=== PATIENT | female | born 1955 | race Two or more races ===

== ENCOUNTER 2021-03-03 14:02 | Emergency (ER) | payer SELFPAY ==
[~2021-03-03] VITALS: Ht 167.6 cm; Wt 99.8 kg
[2021-03-03 14:45] LABS: Urine Bacteria FEW /hpf (None Seen); Urine Blood Negative /uL (Negative); Urine Mucus FEW (None Seen); Urine Specific Gravity 1.023 (1.001-1.035); Urine WBC 18 /hpf (0 - 5)
[2021-03-03 14:45] LABS: Basophils # (auto) 0 10 ^3/uL (0-0.2); Basophils % (auto) 0.5 % (0.0-2.0); Eosinophils # (auto) 0.1 10 ^3/uL (0-0.8); Eosinophils % (auto) 1.1 % (0.0-7.0); Hematocrit 37.2 % (36.0-46.0); Hemoglobin 12.6 g/dL (12.2-16.2); Lymphocytes # (auto) 1.9 10 ^3/uL (0.4-5.4); Lymphocytes % (auto) 24.8 % (10.0-50.0); Mean Corpuscular Hemoglobin 29.7 pg (28.0-32.0); Mean Corpuscular Hgb Conc. 33.8 g/dL (32.0-36.0); Mean Corpuscular Volume 87.8 fL (80.0-100.0); Monocytes # (auto) 0.4 10 ^3/uL (0-1.3); Monocytes % (auto) 5.3 % (0.0-12.0); Neutrophils # (auto) 5.3 10 ^3/uL (1.6-8.6); Neutrophils % (auto) 68.3 % (37.0-80.0); Red Blood Cells 4.24 10^6/uL (4.0-5.20); Red Cell Distribution Width 13.7 % (11.8-14.3); White Blood Cell 7.7 10^3/uL (4.4-10.8)
[2021-03-03 15:05] LABS: Albumin 3.7 g/dL (3.4-5.0); Calcium 8.7 mg/dL (8.5-10.1); Potassium 3.8 mmol/L (3.5-5.1)
[2021-03-03 15:08] LABS: BUN/Creatinine Ratio 23.8; Bilirubin, Total 0.5 mg/dL (0.2-1.0); Total Protein 7.5 g/dL (6.4-8.2)
[2021-03-03 18:55] VITALS: BP 155/68
[2021-03-03] MEDS ORDERED: PERCOT PO (19:01)
[2021-03-03] MEDS ORDERED: ONDA-144 PO (19:01)
[2021-03-03] MEDS ORDERED: LEVO500T31 PO (19:01)
== END 2021-03-03 18:57 | disposition home or self-care (01) ==
LOC: ER 14:02
DX: N39.0 Urinary tract infection, site not specified (principal); N12 Tubulo-interstitial nephritis, not specified as acute or chronic; K57.30 Diverticulosis of large intestine without perforation or abscess without bleeding; R07.89 Other chest pain
CPT/HCPCS: 36415; 74176; 80053; 81001; 84484; 85025; 93005

== ENCOUNTER 2021-04-08 15:40 | Emergency (ER) | payer MEDICAID ==
[~2021-04-08] VITALS: Ht 167.6 cm; Wt 99.8 kg
[~2021-04-08 15:40] MED LIST: LEVO500T31 PO; ONDA-144 PO; PERCOT PO
[2021-04-08 17:44] VITALS: BP 125/79
== END 2021-04-08 17:46 | disposition home or self-care (01) ==
LOC: ER 15:40
DX: S61.215A Laceration without foreign body of left ring finger without damage to nail, initial encounter (principal); Z79.2 Long term (current) use of antibiotics; Z79.899 Other long term (current) drug therapy; W26.8XXA Contact with other sharp object(s), not elsewhere classified, initial encounter; Y93.89 Activity, other specified; Y92.89 Other specified places as the place of occurrence of the external cause; Y99.8 Other external cause status
CPT/HCPCS: 12001; 73120

== ENCOUNTER 2021-10-25 14:05 | Emergency (ER) | payer MEDICARE, MEDICAID ==
[~2021-10-25] VITALS: Ht 167.6 cm; Wt 90.7 kg
[2021-10-25 15:01] VITALS: BP 136/67
[2021-10-25 15:45] LABS: Urine Bacteria NONE SEEN /hpf (None Seen); Urine Blood Negative /uL (Negative); Urine Mucus FEW (None Seen); Urine Specific Gravity 1.026 (1.001-1.035); Urine WBC 2 /hpf (0 - 5)
[2021-10-25] MEDS: HYDROcodone-ACET 5/325MG TAB PO ONE (17:45)
[2021-10-25] MEDS: ONDANSETRON ODT 4 MG TAB PO ONE (17:45)
== END 2021-10-25 19:24 | disposition home or self-care (01) ==
LOC: ER 14:05
DX: R10.2 Pelvic and perineal pain (principal); Z90.710 Acquired absence of both cervix and uterus
CPT/HCPCS: 76856; 81001; 99284; Q0162